=== PATIENT | male | born 1975 | race Caucasian/White ===

== ENCOUNTER 2018-01-28 18:33 | Emergency (ER) | payer OTHER ==
[~2018-01-28] VITALS: Ht 182.9 cm; Wt 77.1 kg
[2018-01-28] MEDS ORDERED: KETO10TA2 PO (21:42)
[2018-01-28] MEDS ORDERED: ORPHENADRINE C100 MG PO (21:42)
== END 2018-01-28 21:49 | disposition home or self-care (01) ==
LOC: ER 18:33
DX: S23.3XXA Sprain of ligaments of thoracic spine, initial encounter (principal); W01.198A Fall on same level from slipping, tripping and stumbling with subsequent striking against other object, initial encounter; Y93.01 Activity, walking, marching and hiking; Y92.488 Other paved roadways as the place of occurrence of the external cause; Y99.8 Other external cause status